=== PATIENT | male | born 1955 | race Caucasian/White ===

== ENCOUNTER 2017-05-08 15:09 | Emergency (ER) | payer OTHER ==
[~2017-05-08] VITALS: Ht 170.2 cm; Wt 82.0 kg
[~2017-05-08 15:09] MED LIST: HYDR25CA PO; LMC/150 PO; MIRT15TA3 PO
[2017-05-08 15:14] VITALS: TEMP 36.4; Ht 170.2 cm; Wt 82.0 kg
--- NOTE | 2017-05-08 16:12 | EMERGENCY ROOM VISIT NOTE ---
ED Visit Note First contact with patient: 15:17 CHIEF COMPLAINT: Right Wrist injury HISTORY of present illness: This 61-year-old male presents the ER with chief complaint of right wrist pain. The patient states that last evening around 5 PM he got mad and went to hit the coffee table and accidentally hit a coffee mad which shattered leaving a small cut on his right wrist. Today the patient has pain and swelling over the ulnar aspect of the wrist. He only rates the pain at a 2 out of 10. The patient states he can move the wrist without difficulty but it hurts if you push on the wrist. The patient is right-hand dominant. The patient's tetanus is up-to-date. REVIEW OF SYSTEMS: 6 system review was performed and was negative unless stated otherwise in history of present illness. PMH: The patient is healthy; Deep brain syndrome SOCIAL HISTORY: Patient lives with his . The patient denies any tobacco or alcohol use. PHYSICAL EXAM: Vital Signs: Were reviewed Reviewed Nurse's notes. GEN.: 61-year -old white male appears in no acute distress. MENTAL STATUS: Alert and oriented. RIGHT WRIST: Tenderness over the ulnar aspect with mild swelling. Range of motion is full. No deformity. SKIN: Small cut noted which looks clean and there is no active bleeding. The hand is warm and well perfused and the fingers move normally. EMERGENCY DEPARTMENT COURSE: The patient was evaluated. The patient was offered pain medication but declined. X-ray of the right wrist was ordered and interpreted by myself with ulnar styloid process fracture. This will later be interpreted by the radiologist. The patient was placed in a wrist lacer splint. The patient was independently evaluated by Dr. leon who agrees with treatment plan. The patient was discharged home in stable condition. DIAGNOSIS: Fracture of the right ulnar styloid process DISCHARGE INSTRUCTIONS & TREATMENT: Wear wrist splint except for bathing until evaluated by orthopedics. Tylenol as needed for pain. Call Dr. Trevizo on Wednesday for follow-up appointment. Problem List Medical Problems: (1) ABN INVOLUN MOVEMENT NEC Status: Chronic (2) Diplopia Status: Chronic (3) Dyslipidemia Status: Chronic (4) Generalized-onset seizures Status: Chronic Current/Historical Medications Scheduled Hydroxyzine Pamoate (Vistaril), 75 MG PO HS PRN Lamotrigine (Lamictal), 300 MG PO BID Mirtazapine (Remeron), 15 MG PO HS Allergies Coded Allergies: Alcohol (Verified Allergy, ALCOHOLIC, 12/02/12) Phenobarbital (Verified Allergy, RASH, 12/02/12) Vital Signs Date Time Temp Pulse Resp B/P (MAP) Pulse Ox O2 Delivery O2 Flow Rate FiO2 05/08/17 15:14 36.4 55 20 151/72 95 Room Air Departure Information Referrals Debra Cabello D.M.D. (PCP) Patient Instructions [facility]
[2017-05-08 16:13] VITALS: BP 146/84; PULSE 57; O2SAT 94
--- NOTE | 2017-05-08 16:39 | DIAGNOSTIC IMAGING REPORT ---
R WRIST MIN 3 VIEWS ROUTINE CLINICAL HISTORY: Right wrist injury. COMPARISON: None FINDINGS: There is an acute nondisplaced fracture of the ulnar styloid. No additional fractures are identified. Carpal bones are intact. IMPRESSION: Acute nondisplaced fracture of the ulnar styloid. Electronically signed by: Javier Alvarado M.D. 05/08/2017 4:38 PM Dictated Date/Time: 05/08/2017 4:37 PM
--- NOTE | 2017-05-09 00:56 | EMERGENCY ROOM VISIT NOTE ---
ED Visit Note First contact with patient: 15:17 HPI: 61M with right wrist pain after punching coffee much. Plan: Acute nondisplaced fracture of the ulnar styloid. Splint. Ortho f/u. I reviewed the patient's past medical history, medications, and visit nursing notes. I discussed the case with the physician conservation assistant, examined the patient, and agree with the findings and plan as documented in the physician assistants note.
== END 2017-05-08 16:20 | disposition home or self-care (01) ==
LOC: C.EDB 15:12 → C.EDD 16:20
DX: S52.611A Displaced fracture of right ulna styloid process, initial encounter for closed fracture (principal); S61.519A Laceration without foreign body of unspecified wrist, initial encounter; W26.8XXA Contact with other sharp object(s), not elsewhere classified, initial encounter

== ENCOUNTER 2017-10-02 22:27 | Emergency (ER) | payer OTHER ==
[~2017-10-02] VITALS: Ht 170.2 cm; Wt 80.4 kg
[2017-10-02 22:33] VITALS: TEMP 36.6; Ht 170.2 cm; Wt 80.4 kg
[2017-10-02] MEDS ORDERED: B-COTAB18 PO (23:14)
--- NOTE | 2017-10-02 23:18 | EMERGENCY ROOM VISIT NOTE ---
History Report prepared by Jenelle: Mario Bellamy Under the Supervision of: Dr. Marcelo Pantoja M.D. First contact with patient: 23:02 Chief Complaint: BACK PAIN Stated Complaint: LOW BACK PAIN, GROIN PAIN History of Present Illness The patient is a 62 year old male who presents to the Emergency Room with complaints of worsening, lower, right back pain beginning two weeks ago. The patient states standing up worsens his discomfort. He reports he tried to stand up today and it felt like someone was pulling something out of his right groin. The patient notes he started walking everywhere he needs to go. He states he thought he needed to see a chiropractor, but he did not because they cannot manipulate his neck. The patient reports he has a history of neck problems, seizures, a vasectomy, alcoholism, and smoking. He notes he takes seizure medication, has been sober for 20 years, and switched to chewing tobacco. The patient denies masses or rash to the groin, a history of back surgeries, pain going down his leg, taking steroids, being incontinent of his urine or stool, fevers, and falls. Source of History: patient Onset: 2 weeks ago Position: back (lower, right) Timing: worsening Modifying Factors (Worsening): other (standing) Associated Symptoms: No rash Note: Denies: falls, masses, urine incontinence, stool incontinence Review of Systems See HPI for pertinent positives & negatives. A total of 10 systems reviewed and were otherwise negative. Past Medical & Surgical Medical Problems: (1) ABN INVOLUN MOVEMENT NEC (2) Diplopia (3) Dyslipidemia (4) Generalized-onset seizures Family History Diabetes mellitus FH: lung disease FHx: cancer FHx: gallbladder disease FHx: heart disease Hypertension Kidney disease Kidney stones Seizures Social History Smoking Status: Former Smoker Smokeless Tobacco Use: Yes Alcohol Use: none Marital Status: Housing Status: lives alone Occupation Status: unemployed Current/Historical Medications Scheduled B-Complex Vitamins (Vitamin B Complex), 1 TAB PO DAILY Lamotrigine (Lamictal), 300 MG PO BID Methylprednisolone (Medrol Dosepak), 1 PKT PO UD Scheduled PRN Cyclobenzaprine Hcl (Flexeril), 10 MG PO TID PRN for Muscle Spasms Hydroxyzine Pamoate (Vistaril), 12.5 MG PO HS PRN for Sleep Allergies Coded Allergies: Alcohol (Verified Allergy, Unknown, ALCOHOLIC, 10/02/17) Phenobarbital (Verified Allergy, Unknown, RASH, 10/02/17) Physical Exam Vital Signs Date Time Temp Pulse Resp B/P (MAP) Pulse Ox O2 Delivery O2 Flow Rate FiO2 10/03/17 00:15 55 16 150/84 94 Room Air 10/02/17 22:33 36.6 49 16 132/54 94 Room Air Physical Exam GENERAL: Patient is uncomfortable appearing with standing and in mild distress. EYES: No scleral icterus, unremarkable pupils. ENT: Mucous membranes moist, no nasal congestion. NECK: No masses appreciated, no meningismus, trachea is midline. RESPIRATORY: No dyspnea. Clear to auscultation and equal bilaterally. No wheeze , no rhonchi. CARDIOVASCULAR: Regular rate and rhythm. No murmurs, rubs, gallops appreciated. GASTROINTESTINAL: Abdomen soft, nontender, no peritonitis. Bowel sounds positive. No masses appreciated. BACK: No midline tenderness, no CVA tenderness. Mild tenderness over the right paraspinous muscles. EXTREMITIES: Normal motion all extremities, no cyanosis, no edema. NEUROLOGIC: Alert and oriented, no acute motor or sensory deficits, no focal weakness, cranial nerves grossly intact. SKIN: No rash, no jaundice, no diaphoresis. Heavily tattooed Medical Decision & Procedures ER Provider Diagnostic Interpretation: X ray results are stated below per my interpretation: Lumbar Spine 4 view: No fracture or dislocation noted. Moderate arthritic changes. Some straightening of the lordosis. Mild anterior listhesis of L5 on L1. Medications Administered Medications (Trade) Dose Ordered Sig/Roly Route Start Time Stop Time Status Last Admin Dose Admin Prednisone (PredniSONE TAB) 60 mg NOW STAT PO 10/03/17 00:13 10/03/17 00:14 DC 10/03/17 00:28 60 MG Cyclobenzaprine HCl (FLEXERIL 10MG Home Pack) 1 homepack UD ONCE PO 10/03/17 00:15 10/03/17 00:16 DC 10/03/17 00:28 1 HOMEPACK Cyclobenzaprine HCl (Flexeril Tab) 10 mg NOW STAT PO 10/03/17 00:13 10/03/17 00:14 DC 10/03/17 00:28 10 MG ED Course 2307: The patient was evaluated in room B09. A complete history and physical exam was performed. 0009: Reevaluated the patient. He feels comfortable with discharge and has requested non-narcotic and non-addictive pain medication. He is fine with steroids and Flexeril. Discussed results and discharge instructions: he verbalized understanding and agreement. The patient is ready for discharge. Medical Decision Differential: Musculoskeletal, Disc Herniation, Fracture, Cord Compression, Discitis, Infectious, Aortic Pathology, Renal Colic, UTI/Pyelonephritis, Acute Exacerbation of Chronic Pain, Sciatica, Cauda Equina, amongst other pathologies entertained. 62 yr old male with gradually worsening right lower back pain radiating right thigh over last week. Adamantly refuses any pain nor spasm meds that might cause addiction. Imaging with arthritic changes and lumbar straightening. Will treat with steroid given sciatica component and with flexeril for spasm. Discussed symptoms requiring RTED and I made clear he should follow up with his PCP for repeat evaluation and to discuss further testing as needed. Medication Reconcilliation Current Medication List: was personally reviewed by me Blood Pressure Screening Patient's blood pressure: Elevated blood pressure Blood pressure disposition: Referred to PCP Impression Primary Impression: Acute low back pain with right-sided sciatica Scribe Attestation The scribe's documentation has been prepared under my direction and personally reviewed by me in its entirety. I confirm that the note above accurately reflects all work, treatment, procedures, and medical decision making performed by me. Departure Information Dispostion Home / Self-Care Prescriptions Cyclobenzaprine Hcl (FLEXERIL) 10 Mg Tab 10 MG PO TID Y for Muscle Spasms, #15 TAB Prov: Marcelo Pantoja M.D. 10/03/17 Methylprednisolone (MEDROL DOSEPAK) 4 Mg Cory 1 PKT PO UD for 6 Days, #1 PKT Prov: Marcelo Pantoja M.D. 10/03/17 Forms HOME CARE DOCUMENTATION FORM, IMPORTANT VISIT INFORMATION Patient Instructions ARI Whaley, My [facility]
[2017-10-03] MEDS ORDERED: CYCLOBENZAPRINE HCL 10 MG TAB PO STA (00:13)
[2017-10-03] MEDS ORDERED: CYCL10TA6 PO (00:14)
[2017-10-03] MEDS ORDERED: METH4PAK PO (00:14)
[2017-10-03 00:15] VITALS: BP 150/84; PULSE 55; O2SAT 94
[2017-10-03] MEDS ORDERED: FLEXERIL HOME PACK 10 MG VIAL PO ONE (00:15)
--- NOTE | 2017-10-03 10:47 | DIAGNOSTIC IMAGING REPORT ---
L-SPINE MIN 4 VIEWS ROUTINE HISTORY: 62 years-old Male low back pain, worse with standing, radiates right leg acute low back pain with radiation into the right lower extremity COMPARISON: Acute abdominal series radiographs 07/25/2012 TECHNIQUE: 5 views of the lumbar spine FINDINGS: 6 nonrib-bearing lumbar type vertebral segments are noted. Minimal levoscoliosis. No acute fracture or subluxation. No spondylolysis or spondylolisthesis. Moderate multilevel endplate spurring with mild multilevel intervertebral disc space narrowing and mild to moderate facet arthrosis. Phleboliths of the pelvis. Punctate metallic radiodensity is again noted projecting over the abdominal right upper quadrant. Moderate stool volume of the right hemicolon. IMPRESSION: Degenerative changes as above without acute fracture or subluxation. The above report was generated using voice recognition software. It may contain grammatical, syntax or spelling errors. Electronically signed by: Americo Monroe M.D. 10/03/2017 10:45 AM Dictated Date/Time: 10/03/2017 10:43 AM
== END 2017-10-03 00:32 | disposition home or self-care (01) ==
LOC: C.EDB 22:27
DX: M54.41 Lumbago with sciatica, right side (principal); E78.5 Hyperlipidemia, unspecified; G40.909 Epilepsy, unspecified, not intractable, without status epilepticus; Z79.899 Other long term (current) drug therapy; Z88.8 Allergy status to other drugs, medicaments and biological substances; Z91.09 Other allergy status, other than to drugs and biological substances